=== PATIENT | female | born 1965 | race Caucasian/White ===

== ENCOUNTER 2020-08-24 04:14 | Emergency (ER) | payer OTHER, MEDICARE, SELFPAY ==
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
[2020-08-24 04:23] VITALS: BP 145/71; PULSE 90; RESP 16; TEMP 36.9; O2SAT 98
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
[2020-08-24 07:07] VITALS: BP 131/89; PULSE 81; RESP 16; TEMP 36.3; O2SAT 97
== END 2020-08-24 07:14 | disposition home or self-care (01) ==
PROVIDERS: Emergency Provider Emergency Medicine
DX: M54.9 Dorsalgia, unspecified (principal); G89.29 Other chronic pain; V40.5XXA Car driver injured in collision with pedestrian or animal in traffic accident, initial encounter
CPT/HCPCS: 72128; 72131; 99284